=== PATIENT | female | born 1955 | race Caucasian/White ===

== ENCOUNTER 2016-08-14 22:25 | Emergency (ER) | payer OTHER ==
[2016-08-14 22:32] VITALS: BP 173/85; PULSE 94; RESP 18; TEMP 97.7
--- NOTE | 2016-08-14 23:08 | XR ---
EXAM: XR Left Foot Complete, 3 Views. CLINICAL HISTORY: Pain TECHNIQUE: Frontal, lateral and oblique views of the left foot. COMPARISON: XR left ankle dated 06/04/[address] left ankle dated 06/04/2014. FINDINGS: Bones/joints: Two orthopedic screws transfix the distal tibia in region of previous fracture. No evidence of acute fracture or hardware failure. Small corticated osseous fragment at the tip of the medial malleolus, probably sequela of prior injury. No dislocation. Mild degenerative changes are present. Soft tissues: Mild soft tissue swelling of the ankle. No radiopaque foreign body. IMPRESSION: 1. No acute fracture dislocation of the left foot. 2. Two orthopedic screws at the distal tibia without evidence of acute abnormality. 3. Corticated osseous fragment at the medial malleolus, probably sequela of prior injury.
--- NOTE | 2016-08-14 23:36 | ED ---
Lower Extremity Injury HPI - General Chief Complaint: Extremity Injury, Lower Stated Complaint: foot injury Time Seen by Provider: 08/14/16 22:35 Source: patient, RN notes reviewed Mode of arrival: ambulatory Limitations: no limitations - History of Present Illness Initial Comments: 60-year-old female presents emergency Department with chief complaint of left foot and ankle pain. Patient states she twisted her ankle. Patient states she' s had prior surgery secondary to fracture. Patient states bruising noted along her foot. Patient denies any head injury no other injuries at this time. - Related Data Home Medications Medication Instructions Recorded Confirmed Aspirin 325 mg PO DAILY 06/04/14 08/14/16 Cetirizine HCl [Zyrtec] 10 mg PO HS 06/04/14 08/14/16 Hydroxychloroquine Sulfate 200 mg PO BID 06/04/14 08/14/16 [Plaquenil] L.acid/L.casei/B.bif/B.tesfaye/Fos 1 cap PO DAILY 06/04/14 08/14/16 [Probiotic Blend Capsule] Levothyroxine Sodium [Synthroid] 125 mcg PO DAILY 06/04/14 08/14/16 Losartan-Hctz 50-12.5 mg [Hyzaar 1 tab PO HS 06/04/14 08/14/16 50-12.5] Multivitamins, Thera [Multivitamin] 1 tab PO DAILY 06/04/14 08/14/16 Sodium Chloride 5% Ophth Soln 2 drops BOTH EYES Q6H 06/04/14 08/14/16 [Farnaz 128] Previous Rx's Medication Instructions Recorded Hydrocodone/Acetaminophen [[place] 1 tab PO Q6HR PRN #15 tab 08/14/16 5-325] Allergies Allergy/AdvReac Type Severity Reaction Status Date / Time Penicillins Allergy Swelling Verified 08/14/16 22:35 lactose AdvReac Nausea & Verified 08/14/16 22:35 Vomiting & Diarrhea Review of Systems ROS Statement: Those systems with pertinent positive or pertinent negative responses have been documented in the HPI. ROS Other: All systems not noted in ROS Statement are negative. Past Medical History Past Medical History: Fibromyalgia, Hyperlipidemia, Hypertension, Osteoarthritis (OA), Thyroid Disorder Additional Past Medical History / Comment(s): Sjogrens syndrome History of Any Multi-Drug Resistant Organisms: None Reported Past Surgical History: Tonsillectomy Additional Past Surgical History / Comment(s): Right ankle fracture Past Psychological History: No Psychological Hx Reported Smoking Status: Never smoker Past Alcohol Use History: Heavy Past Drug Use History: None Reported - Past Family History Father Family Medical History: Coronary Artery Disease (CAD) Mother Family Medical History: CVA/TIA General Exam Limitations: no limitations General appearance: alert, in no apparent distress Head exam: Present: atraumatic, normocephalic, normal inspection Respiratory exam: Present: normal lung sounds bilaterally. Absent: respiratory distress, wheezes, rales, rhonchi, stridor Cardiovascular Exam: Present: regular rate, normal rhythm, normal heart sounds. Absent: systolic murmur, diastolic murmur, rubs, gallop, clicks Extremities exam: Present: other (Left foot there is bruising noted along the dorsal aspect, mild tenderness there is no laxity there is old surgical scars noted along the tib-fib region with no tenderness) Skin exam: Present: warm, dry, intact, normal color. Absent: rash Course Vital Signs 08/14/16 22:30 Temperature 97.7 F Pulse Rate 94 Respiratory 18 Rate Blood Pressure 173/85 O2 Sat by Pulse 99 Oximetry Medical Decision Making - Medical Decision Making 60-year-old female presented for left foot and ankle pain. Patient x-ray shows no acute fracture. Patient has a left foot sprain. Disposition Clinical Impression: Sprain of left foot Disposition: HOME SELF-CARE Condition: Stable Instructions: Foot Sprain (ED) Additional Instructions: Please return to the Emergency Department if symptoms worsen or any other concerns. Prescriptions: Hydrocodone/Acetaminophen [[place] 5-325] 1 tab PO Q6HR PRN #15 tab PRN Reason: Pain Time of Disposition: 23:36
--- NOTE | 2016-08-14 23:41 | XR ---
EXAM: XR Left Ankle Complete, 3 Views. CLINICAL HISTORY: Pain. TECHNIQUE: Frontal, lateral and oblique views of the left ankle. COMPARISON: XR and CT dated 06/04/2014. FINDINGS: Bones/joints: Two orthopedic screws are present at the left distal tibia. There is mild heterogeneity of the distal tibia with mixed sclerosis and lucency along the lateral aspect of the distal tibia. Corticated osseous fragment at the tip of the medial malleolus, likely sequela of prior injury. No dislocation. Soft tissues: Mild soft tissue swelling of the ankle. No evidence of radiopaque foreign body. IMPRESSION: 1. Orthopedic screws at the left distal tibia without radiographic evidence of acute fracture or dislocation. 2. Mild heterogeneity of the distal tibia with mixed sclerosis and lucency along the lateral aspect of the distal tibia. Findings may be related to sequela of prior injury although reinjury, infection, avascular necrosis or other process cannot be excluded. If there is clinical concern for infection or other abnormality, consider CT or MRI to further assess. 3. Mild soft tissue swelling of the left ankle.
== END 2016-08-14 23:48 | disposition home or self-care (01) ==
LOC: EC 22:25
DX: S93.602A Unspecified sprain of left foot, initial encounter (principal); X50.1XXA Overexertion from prolonged static or awkward postures, initial encounter; E07.9 Disorder of thyroid, unspecified; I10 Essential (primary) hypertension; E78.5 Hyperlipidemia, unspecified; Z79.82 Long term (current) use of aspirin; Z79.899 Other long term (current) drug therapy
CPT/HCPCS: 99283

== ENCOUNTER → 2018-04-19 | Outpatient (CLI) | payer OTHER ==
--- NOTE | 2018-04-19 13:28 | XR ---
EXAMINATION TYPE: XR ankle complete RT DATE OF EXAM: 04/19/2018 COMPARISON: NONE HISTORY: Pain TECHNIQUE: Frontal, lateral and oblique images of the right ankle are obtained. COMPARISON: None. FINDINGS: There is no acute fracture/dislocation evident. The joint spaces appear within normal gutierrez its. Chronic fragmentation medial malleolus. The overlying soft tissue appears unremarkable. IMPRESSION: There is no acute fracture or dislocation seen.
== END ==
LOC: RADXRMAIN 12:54
PROVIDERS: ATTEND Family Medicine
DX: M25.571 Pain in right ankle and joints of right foot (principal)

== ENCOUNTER 2019-03-09 16:29 | Inpatient (IN) | payer OTHER ==
[2019-03-09] MEDS ORDERED: DIPH,PERTUS(ACELL)TETVAC-LF 0.5 ML VIAL IM ONE (17:58)
--- NOTE | 2019-03-09 18:08 | ED ---
Wound/Laceration HPI <Amado John - Last Filed: 03/09/19 20:29> - General Source: patient, EMS Mode of arrival: EMS Limitations: no limitations <Lindsey Stroud - Last Filed: 03/09/19 21:57> - General Chief Complaint: Wound/Laceration Stated Complaint: Laceration Time Seen by Provider: 03/09/19 17:16 - History of Present Illness Initial Comments: Patient is a 63-year-old female presenting to the emergency department with a large laceration to the back of her right knee that happened prior to arrival. Patient states she was working on her roof and went to come off the roof onto her ladder and the ladder shifted and she ended up with her right leg trapped inside the ladder and she was hanging upside down for approximately 10-15 minutes until EMS showed and helped her down. Patient did not fall off of her ladder. Patient denies pain or injuries anywhere else. She denies hitting her head. Patient received 10 mL of morphine in the EMS. Patient denies chest pain, shortness of breath, nausea, vomiting, abdominal pain. Patient denies hip pain. Patient denies being on blood thinner. Past medical history of fibromyalgia, hypertension, thyroid disorder, Sjogrens syndrome. Upon arrival to ER, vital signs are stable. (Lindsey Stroud) - Related Data Home Medications Medication Instructions Recorded Confirmed Aspirin 325 mg PO DAILY 06/04/14 03/09/19 Hydroxychloroquine Sulfate 200 mg PO BID 06/04/14 03/09/19 [Plaquenil] Calcium Carbonate/Vitamin D3 1 tab PO AC-LUNCH 03/09/19 03/09/19 [Calcium 600-Vit D3 200 Tablet] Hydrochlorothiazide 12.5 mg PO HS 03/09/19 03/09/19 Levothyroxine Sodium [Synthroid] 137 mcg PO DAILY 03/09/19 03/09/19 Losartan [Cozaar] 50 mg PO HS 03/09/19 03/09/19 Vortioxetine Hydrobromide 5 mg PO DAILY 03/09/19 03/09/19 [Trintellix] Allergies Allergy/AdvReac Type Severity Reaction Status Date / Time Penicillins Allergy Swelling Verified 03/09/19 19:10 lactose AdvReac Nausea & Verified 03/09/19 19:10 Vomiting & Diarrhea Review of Systems ROS Other: All systems not noted in ROS Statement are negative. <Amado John - Last Filed: 03/09/19 20:29> ROS Other: All systems not noted in ROS Statement are negative. <Lindsey Stroud - Last Filed: 03/09/19 21:57> ROS Statement: Those systems with pertinent positive or pertinent negative responses have been documented in the HPI. Past Medical History Past Medical History: Fibromyalgia, Hyperlipidemia, Hypertension, Osteoarthritis (OA), Thyroid Disorder Additional Past Medical History / Comment(s): Sjogrens syndrome History of Any Multi-Drug Resistant Organisms: None Reported Past Surgical History: Tonsillectomy Additional Past Surgical History / Comment(s): Right ankle fracture Past Psychological History: Depression Smoking Status: Never smoker Past Alcohol Use History: Heavy Past Drug Use History: None Reported - Past Family History Father Family Medical History: Coronary Artery Disease (CAD) Mother Family Medical History: CVA/TIA <Lindsey Stroud - Last Filed: 03/09/19 21:57> General Exam Limitations: no limitations <Lindsey Stroud - Last Filed: 03/09/19 21:57> - General Exam Comments Initial Comments: GENERAL: Well-appearing, well-nourished and in no acute distress. HEAD: Atraumatic, normocephalic. EYES: Pupils equal round and reactive to light, extraocular movements intact, sclera anicteric, conjunctiva are normal. ENT: TMs normal, nares patent, oropharynx clear without exudates. Moist mucous membranes. NECK: Normal range of motion, supple without lymphadenopathy or JVD. LUNGS: Breath sounds clear to auscultation bilaterally and equal. No wheezes rales or rhonchi. HEART: Regular rate and rhythm without murmurs, rubs or gallops. ABDOMEN: Soft, nontender, normoactive bowel sounds. No guarding, no rebound. No masses appreciated. : Deferred EXTREMITIES: Pain with active knee flexion. Decreased active range of motion. Sensation is decreased on the medial aspect of the lower right leg when compared to the lateral aspect. Dorsal pedis is normal bilateral, confirmed with Doppler. Bleeding is minimal at this time. NEUROLOGICAL: Cranial nerves II through XII grossly intact. Normal speech, normal gait. PSYCH: Normal mood, normal affect. SKIN: Warm, Dry, normal turgor, no rashes. Patient has a large open wound to the medial, posterior aspect of the right knee. Wound is approximately 7 cm x 2 cm with a depth of approximately 2 cm. muscles and tendons exposed.. (Lindsey Stroud) Course <Amado John - Last Filed: 03/09/19 20:29> <Lindsey Stroud - Last Filed: 03/09/19 21:57> Vital Signs 03/09/19 03/09/19 16:31 18:27 Temperature 97 F L Pulse Rate 91 87 Respiratory 18 18 Rate Blood Pressure 131/80 138/74 O2 Sat by Pulse 99 99 Oximetry - Reevaluation(s) Reevaluation #1: 03/09/19 18:00 Asked by PA to evaluate patient. Patient does have a 4 x 7 cm laceration right posterior popliteal region, medially. There is some decreased sensation of the distal to this however sensation of the foot is intact. Dorsalis pedis pulse +2 bilateral. Good strength with flexion and extension of the foot. There may be slight decreased strength with flexion at the knee on the right. Cannot rule out disruption of the medial hamstring tendon. Unable to fully approximate the wound during examination. There is muscle exposed as well as some nerve exposure. There is minimal oozing. Case was discussed with Dr. Sol who recommends calling orthopedics. Comfort is 4/10, patient does not want pain medicine at this time. 03/09/19 18:16 Orthopedics has been paged, return call still pending 03/09/19 18:35 Case was discussed with Dr. Goldberg with orthopedics who does request discussing case with vascular. Vascular has been paged. 03/09/19 18:46 Case was discussed with Dr. Diaz to who feels he may not be a bad idea to order CT angios to evaluate popliteal artery. He states if there is any abnormality to call him back otherwise this case could be managed by orthopedics or general surgery. Patient was reevaluated and updated. Patient is still not want pain medication at this time. 03/09/19 20:29 Case again was discussed with Dr. Goldberg who does request approximating the wound as much as possible in the immobilizer and will admit. (Amado John) 03/09/19 17:50 Patient's wound was irrigated with 1 L of sterile saline. (Lindsey Stroud) Reevaluation #2: 03/09/19 19:26 Patient has returned from CT. Bleeding is minimal at this time from the wound. Patient reports her pain has started to increase slightly and is requesting more pain medication. Patient will be given [address] A[address] results of CT. 03/09/19 19:27 (Lindsey Stroud) Reevaluation #3: 03/09/19 21:30 CT of the right knee is normal, no arterial damage. Patient will be admitted to orthopedics. Patient's wound was loosely approximated with 3 sutures, covered with wet gauze,Tony bandage and knee immobilizer applied. Patient's pain is minimal at this time. (Lindsey Stroud) Procedures - Laceration Laceration #1 Consent Obtained: verbal consent Indication: laceration Site: other (Posterior aspect of right knee in the popliteal space) Size (cm): 7 Description: avulsion, irregular Depth: involves muscle layer, involves tendon Anesthetic Used: lidocaine 1% Anesthesia Technique: local infiltration Amount (mls): 10 Pre-repair: irrigated extensively Type of Sutures: nylon Size of Sutures: 4-0 Number of Sutures: 3 Technique: simple, interrupted Patient Tolerated Procedure: well <Lindsey Stroud - Last Filed: 03/09/19 21:57> - Laceration Laceration #1 Additional Comments: 3 sutures were used to loosely approximate the wound. The wound was then gerber ged with wet gauze and Tony wrapped. (Lindsey Stroud) Medical Decision Making - Lab Data Result diagrams: 03/09/19 19:09 03/09/19 19:09 <Amado John - Last Filed: 03/09/19 20:29> - Lab Data Result diagrams: 03/09/19 19:09 03/09/19 19:09 <Lindsey Stroud - Last Filed: 03/09/19 21:57> - Medical Decision Making Patient is a 63-year-old female presenting with a large open wound on the posterior aspect of her right knee. Patient got her knee stuck into a ladder. Bleeding is minimal at this time. Patient's wound was irrigated extensively. Patient was started on antibiotics and tetanus was updated. Case was discussed with Dr. John. CTA of right lower extremity shows no arterial damage. Knee x- ray shows no acute fractures. Lab work is normal today. Patient will be admi tted under orthopedics. Wound was loosely approximated with 3 sutures and covered with wet gauze and Tony wrap. Knee immobilizer was applied. (Lindsey Stroud) - Lab Data Lab Results 03/09/19 03/09/19 03/09/19 Range/Units 19:09 19:09 19:09 WBC 6.4 (3.8-10.6) k/uL RBC 3.50 L (3.80-5.40) m/uL Hgb 10.8 L (11.4-16.0) gm/dL Hct 31.7 L (34.0-46.0) % MCV 90.6 (80.0-100.0) fL MCH 30.9 (25.0-35.0) pg MCHC 34.1 (31.0-37.0) g/dL RDW 12.9 (11.5-15.5) % Plt Count 209 (150-450) k/uL Neutrophils % 84 % Lymphocytes % 8 % Monocytes % 5 % Eosinophils % 1 % Basophils % 0 % Neutrophils # 5.4 (1.3-7.7) k/uL Lymphocytes # 0.5 L (1.0-4.8) k/uL Monocytes # 0.3 (0-1.0) k/uL Eosinophils # 0.0 (0-0.7) k/uL Basophils # 0.0 (0-0.2) k/uL PT 11.6 (9.0-12.0) sec INR 1.1 (<1.2) APTT 25.4 (22.0-30.0) sec Sodium 130 L (137-145) mmol/L Potassium 3.9 (3.5-5.1) mmol/L Chloride 99 (98-107) mmol/L Carbon Dioxide 26 (22-30) mmol/L Anion Gap 5 mmol/L BUN 23 H (7-17) mg/dL Creatinine 0.93 (0.52-1.04) mg/dL Est GFR (CKD-EPI)AfAm 76 (>60 ml/min/1.73 sqM) Est GFR (CKD-EPI)NonAf 66 (>60 ml/min/1.73 sqM) Glucose 98 (74-99) mg/dL Calcium 8.5 (8.4-10.2) mg/dL Disposition <Amado John - Last Filed: 03/09/19 20:29> Is patient prescribed a controlled substance at d/c from ED?: No Decision Date: 03/09/19 Decision Time: 21:07 <Lindsey Stroud - Last Filed: 03/09/19 21:57> Clinical Impression: Laceration of right knee with complication Disposition: ADMITTED IP TO THIS HOSP Condition: Stable Referrals: Jack Saini DO [Primary Care Provider] - 1-2 days
--- NOTE | 2019-03-09 18:10 | XR ---
EXAMINATION TYPE: XR knee limited RT DATE OF EXAM: 03/09/2019 CLINICAL HISTORY: Large wound right leg TECHNIQUE: Frontal and lateral views of the right knee are obtained. COMPARISON: None. FINDINGS: There is no acute fracture/dislocation evident in right knee. Fairly severe patellofemoral compartment narrowing and spurring. Fydr-[id number] medial and lateral tibial femoral compartment n arrowing and spurring. Lucency consistent with large laceration medially and posteriorly near level o f knee joint. Adjacent subcutaneous edema extends superiorly and inferiorly. No obvious cortical dest ruction or periosteal reaction. IMPRESSION: As above.
--- NOTE | 2019-03-09 19:25 | CT ---
EXAMINATION TYPE: CT angio lower extremity RT DATE OF EXAM: 03/09/2019 7:18 PM COMPARISON: None. HISTORY: Large laceration Right posterior knee CT DLP: 701.1 mGycm Automated exposure control for dose reduction was used. TECHNIQUE: Performed with IV Contrast, patient injected with 125 mL of Isovue 370. 3D reconstructed images are created on an independent workstation and reviewed.. FINDINGS: There is patency of the distal common iliac arteries bilaterally branching into internal an d external iliac arteries bilaterally without significant plaque or stenosis. There is no significant plaque or stenosis involving common femoral arteries bilaterally ranging into superficial and deep f emoral arteries bilaterally. There is patency of the left superficial femoral artery into the poplite al artery with satisfactory bifurcation trifurcation. Imaging terminates at the proximal leg level. There is patency of the right superficial femoral artery and popliteal artery with bifurcation and tr ifurcation. No significant plaque or stenosis. Laceration injury along posterior medial aspect is see n best axial image 198 with subcutaneous air extending posteriorly and centrally all superficial to t he posterior like muscles and popliteal artery near level of knee. Mild diffuse subcutaneous edema se en posteriorly. No well-formed fluid collection or drainable hematoma noted. Incidental calcified fibroid axial image 39 at level of uterine fundus. IMPRESSION: No arterial compromise in the right lower extremity.
[2019-03-09] MEDS ORDERED: MORPHINE SULFATE 4 MG/ML SYRINGE IVP STA (19:27)
[2019-03-09 19:40] LABS: Calcium 8.5 mg/dL (8.4-10.2); Potassium 3.9 mmol/L (3.5-5.1)
[2019-03-09 19:43] LABS: INR 1.1 (<1.2); Partial Thromboplastin Time 25.4 sec (22.0-30.0); Prothrombin Time 11.6 sec (9.0-12.0)
[2019-03-09 19:49] LABS: Basophils % (A) 0 %; Eosinophils % (A) 1 %; HCT 31.7 % (34.0-46.0); HGB 10.8 gm/dL (11.4-16.0); Lymphocytes # (A) 0.5 k/uL (1.0-4.8); Lymphocytes % (A) 8 %; MCH 30.9 pg (25.0-35.0); MCHC 34.1 g/dL (31.0-37.0); MCV 90.6 fL (80.0-100.0); Mean Platelet Volume 5.8; Monocytes # (A) 0.3 k/uL (0-1.0); Monocytes % (A) 5 %; Neutrophils # (A) 5.4 k/uL (1.3-7.7); Neutrophils % (A) 84 %; Platelet Count 209 k/uL (150-450); RDW 12.9 % (11.5-15.5); WBC 6.4 k/uL (3.8-10.6)
[2019-03-09] MEDS ORDERED: ONDANSETRON 4 MG/2 ML VIAL IVP PRN (20:58)
[2019-03-09] MEDS ORDERED: NALOXONE 0.4 MG/ML 1 ML VIAL IV PRN (20:58)
[2019-03-09] MEDS ORDERED: ACETAMINOPHEN TAB 325 MG TAB PO PRN (20:58)
[2019-03-09] MEDS ORDERED: traMADol 50 MG TAB PO PRN (20:58)
[2019-03-09] MEDS ORDERED: LIDOCAINE 1% INJ 10MG/ML (20 ML MDV) SQ ONE (21:02)
[2019-03-09] MEDS: SODIUM CHLORIDE 0.9% 1,000 ML IV SCH (21:06)
[2019-03-09] MEDS: MORPHINE SULFATE 4 MG/ML SYRINGE IV PRN (23:58)
[2019-03-09] MEDS: LOSARTAN 50 MG TAB PO SCH (23:59)
[2019-03-09] MEDS: HYDROXYCHLOROQUINE SULFATE 200 MG TAB PO SCH (23:59)
[2019-03-10] MEDS: LEVOTHYROXINE 137 MCG TAB PO SCH (04:45)
[2019-03-10] MEDS: MORPHINE SULFATE 4 MG/ML SYRINGE IV PRN ×3 (04:45→11:09)
[2019-03-10] MEDS: HYDROXYCHLOROQUINE SULFATE 200 MG TAB PO SCH ×2 (08:07→20:19)
--- NOTE | 2019-03-10 10:33 | P.HPOR ---
History of Present Illness H&P Date: 03/10/19 Chief Complaint: Laceration right knee this is a 63-year-old female who slipped while on a ladder yesterday. When she fell her right knee was caught up in the ladder and she ended up hanging upside down by her knee for approximately 20 minutes. She was able to get help from a neighbor who called EMS. She is brought to the emergency department and on evaluation she has a large laceration about the posterior aspect of her knee. We are contacted Dr. Manzo last evening who advised them that they may close the incision if CTA was negative. CT was performed which showed no arterial bleed. The wound was loosely approximated in the emergency department and she is admitted to our service. The patient has no new complaints or concerns today. She denies head injury in the fall. Past Medical History Past Medical History: Fibromyalgia, Hyperlipidemia, Hypertension, Osteoarthritis (OA), Thyroid Disorder Additional Past Medical History / Comment(s): Sjogrens syndrome, heart murmur History of Any Multi-Drug Resistant Organisms: None Reported Past Surgical History: Tonsillectomy Additional Past Surgical History / Comment(s): left ankle fracture Past Psychological History: Depression Smoking Status: Never smoker Past Alcohol Use History: Heavy Additional Past Alcohol Use History / Comment(s): patient states she drinks a 6 pack of beer a few times a week. Past Drug Use History: None Reported - Past Family History Father Family Medical History: Coronary Artery Disease (CAD) Mother Family Medical History: CVA/TIA Medications and Allergies Home Medications Medication Instructions Recorded Confirmed Type Aspirin 325 mg PO DAILY 06/04/14 03/09/19 History Hydroxychloroquine Sulfate 200 mg PO BID 06/04/14 03/09/19 History [Plaquenil] Calcium Carbonate/Vitamin D3 1 tab PO AC-LUNCH 03/09/19 03/09/19 History [Calcium 600-Vit D3 200 Tablet] Hydrochlorothiazide 12.5 mg PO HS 03/09/19 03/09/19 History Levothyroxine Sodium [Synthroid] 137 mcg PO DAILY 03/09/19 03/09/19 History Losartan [Cozaar] 50 mg PO HS 03/09/19 03/09/19 History Vortioxetine Hydrobromide 5 mg PO DAILY 03/09/19 03/09/19 History [Trintellix] Allergies Allergy/AdvReac Type Severity Reaction Status Date / Time Penicillins Allergy Swelling Verified 03/09/19 19:10 lactose AdvReac Nausea & Verified 03/09/19 19:10 Vomiting & Diarrhea Physical Examination This is a pleasant 63-year-old female in no acute distress. She is alert and oriented 3. Exam of the right lower extremity reveals a large L-shaped laceration about the posterior medial aspect of the knee. The edges are very loosely approximated but the wound is still fairly open. There is minimal active bloody drainage. She has full foot and ankle motion without difficulty or pain. Neurovascular status to the lower extremities intact. Results X-rays of the right knee reveal no bony abnormality. No acute fracture identified. - Labs Labs: Abnormal Lab Results - Last 24 Hours (Table) 03/09/19 03/09/19 Range/Units 19: 19: RBC 3.50 L (3.80-5.40) m/uL Hgb 10.8 L (11.4-16.0) gm/dL Hct 31.7 L (34.0-46.0) % Lymphocytes # 0.5 L (1.0-4.8) k/uL Sodium 130 L (137-145) mmol/L BUN 23 H (7-17) mg/dL H & H 03/09/19 Range/Units 19:09 Hgb 10.8 L (11.4-16.0) gm/dL Hct 31.7 L (34.0-46.0) % Coagulation 03/09/19 Range/Units 19:09 INR 1.1 (<1.2) Result Diagrams: 03/09/19 19:09 03/09/19 19:09 Assessment and Plan (1) Laceration of right knee with complication Current Visit: Yes Status: Acute Code(s): S81.011A - LACERATION WITHOUT FOREIGN BODY, RIGHT KNEE, INIT ENCNTR SNOMED Code(s): 112344215 Plan: The clinical and x-ray findings are discussed the patient. It is recommended she go to the OR today for irrigation and debridement of the wound and secondary closure. The procedures been discussed in detail including the possible risks and outcomes. After discussion and consideration patient elects to proceed with the surgery.
--- NOTE | 2019-03-10 13:11 | P.CONS ---
History of Present Illness - Reason for Consult Consult date: 03/10/19 Medical management Requesting physician: Kraig Goldberg - Chief Complaint Laceration of the right knee, hypertension, hyperlipidemia and hypothyroidi - History of Present Illness this is a 63-year-old female who slipped while on a ladder yesterday. When she fell her right knee was caught up in the ladder and she ended up hanging upside down by her knee for approximately 20 minutes. She was able to get help from a neighbor who called EMS. She is brought to the emergency department and on evaluation she has a large laceration about the posterior aspect of her knee. We are contacted Dr. Goldberg surgical closure last evening who advised them that they may close the incision if CTA was negative. CT was performed which showed no arterial bleed. The wound was loosely approximated in the emergency department and she is admitted to our service. No other injury except mild bruise on the left knee as well. The depth of the laceration on the lateral side of the right knee is very deep with multiple layer. Orthopedic probably will do a repair on multi layer. Patient is on Plaquenil for Sjogren syndrome which will be held for the next few days and patient should be cover probably with appropriate antibiotics in the next 2 weeks to watch the incision afterward for any sign of infection. Patient will be going to the OR for surgical closure. Review of Systems CONSTITUTIONAL: Well-developed no acute respiratory distress. EYES: No icterus sclerae, no conjunctivitis. EARS, NOSE, MOUTH, THROAT, and FACE: No sore throat, lymphadenopathy, carotid bruits or deformity. RESPIRATORY: No SOB cough or wheezes. CARDIOVASCULAR: No CP, Palpitation, PND, Orthopnea, or angina. GASTROINTESTINAL: No Abd pain, Nausea or vomiting, no Diarrhea or constipation, No GI Bleed, no distention or masses. GENITOURINARY: Negative for Hematuria or UTI, no kidney stones. INTEGUMENT/BREAST: Negative for any muscular injury with mild osteoarthritis.. HEMATOLOGIC/LYMPHATIC: Negative for bleed or purpura. MUSCULOSKELTAL: Negative for Myalgia or arthralgia. NEURLOGICAL: No LOC, Sz or syncope, blurred vision dizziness or abnormality.. BEHAVIORAL/PSYCH: Negative. ENDOCRINE: Negative. Past Medical History Past Medical History: Fibromyalgia, Hyperlipidemia, Hypertension, Osteoarthritis (OA), Thyroid Disorder Additional Past Medical History / Comment(s): Sjogrens syndrome, heart murmur History of Any Multi-Drug Resistant Organisms: None Reported Past Surgical History: Tonsillectomy Additional Past Surgical History / Comment(s): left ankle fracture Past Psychological History: Depression Smoking Status: Never smoker Past Alcohol Use History: Heavy Additional Past Alcohol Use History / Comment(s): patient states she drinks a 6 pack of beer a few times a week. Past Drug Use History: None Reported - Past Family History Father Family Medical History: Coronary Artery Disease (CAD) Mother Family Medical History: CVA/TIA Medications and Allergies Home Medications Medication Instructions Recorded Confirmed Type Aspirin 325 mg PO DAILY 06/04/14 03/09/19 History Hydroxychloroquine Sulfate 200 mg PO BID 06/04/14 03/09/19 History [Plaquenil] Calcium Carbonate/Vitamin D3 1 tab PO AC-LUNCH 03/09/19 03/09/19 History [Calcium 600-Vit D3 200 Tablet] Hydrochlorothiazide 12.5 mg PO HS 03/09/19 03/09/19 History Levothyroxine Sodium [Synthroid] 137 mcg PO DAILY 03/09/19 03/09/19 History Losartan [Cozaar] 50 mg PO HS 03/09/19 03/09/19 History Vortioxetine Hydrobromide 5 mg PO DAILY 03/09/19 03/09/19 History [Trintellix] Allergies Allergy/AdvReac Type Severity Reaction Status Date / Time Penicillins Allergy Swelling Verified 03/09/19 19:10 lactose AdvReac Nausea & Verified 03/09/19 19:10 Vomiting & Diarrhea Physical Exam Vitals: Vital Signs Temp Pulse Pulse Resp BP BP Pulse Ox 03/10/19 07:00 97.8 F 74 16 117/76 98 03/10/19 02:00 97.9 F 77 18 117/73 99 03/09/19 23:00 97.9 F 99 16 136/81 99 03/09/19 21:58 98.1 F 86 16 129/80 99 03/09/19 18:27 87 18 138/74 99 03/09/19 16:31 97 F L 91 18 131/80 99 Intake and Output 03/09/19 03/10/19 03/10/19 22:59 06:59 14:59 Intake Total 480 Balance 480 Intake: Intake, IV Titration 480 Amount Sodium Chloride 0.9% 1, 480 000 ml @ 60 mls/hr IV . [id number] [facility] Rx#:[id number] Other: Voiding Method Toilet Weight 86.183 kg General Appearance: Alert, cooperative, no distress, appears stated age. Neck HEENT: Supple, no lymphadenopathy, no thyroid enlargement, no carotid bruits. Lungs: Clear to auscultation without crackles or wheezes no rhonchi, no deformity. Chest Wall: Chest wall normal expansion with deep inspiration no tenderness and no deformity was found on exam, no costochondral pain or discomfort. Heart: Regular rate and rhythm, S1, S2 normal, no murmur, rub or gallop. Back: Symmetric, no curvature, ROM normal, no CVA tenderness. Abdomen: Soft, non-tender, bowel sounds active all four quadrants, no masses, no organomegaly. Extremities: Mild bruise on the left knee, the right side had a brace but seen a picture of the laceration on the lateral side of the knee with deep no exposure bone the area was irrigated and explain will be going for multilayer repair today. Pulses: 2+ and symmetric. Skin: Skin color, texture, tugor normal, no rashes or lesions. Neurologic: Alert oriented x3 cranial nerves II through XII intact, no motor deficit, no abnormal balance or gait. Results CBC & Chem 7: 03/09/19 19:09 03/09/19 19:09 Labs: Abnormal Lab Results - Last 24 Hours (Table) 03/09/19 03/09/19 Range/Units 19: 19:09 RBC 3.50 L (3.80-5.40) m/uL Hgb 10.8 L (11.4-16.0) gm/dL Hct 31.7 L (34.0-46.0) % Lymphocytes # 0.5 L (1.0-4.8) k/uL Sodium 130 L (137-145) mmol/L BUN 23 H (7-17) mg/dL Assessment and Plan Plan: 1 large laceration of the right knee with complication: Patient had x-ray and further workup was going to the OR today for irrigation debridement and closure. There is no absolute contraindication for surgery no need for any further testing before this type of surgery continue to monitor patient vitals will resume home meds and try to control her pain after surgery. Patient will be off Plaquenil for 3 days and highly recommended to start patient on antibiotics for the next 2 weeks specially with the area been open overnight and to watch the incision as an outpatient to make sure she is negative have any secondary infection or cellulitis. 2 hypertension: Remain on losartan and hydrochlorothiazide. 3 hypothyroidism: Remain on levothyroxine 137 g daily continue medication. 4 chronic depression: Has been on Trintellix 5 mg a day resume medication. 5 Sjogren syndrome: Patient has been on Plaquenil for Sjogren and arthritis continue medication after the surgery would hold medication for now. 6 edema: Patient be continued on hydrochlorothiazide after surgery. 7 GI prophylaxis: Patient be on Pepcid 20 mg daily. 8 DVT prophylaxis: Patient be started on heparin 5000 units subcutaneous twice a day. CODE STATUS: Full code. Dr. Goldberg thank you very much for the consult if I can be any further help to please let me know
[2019-03-10] MEDS: SODIUM CHLORIDE 0.9% 1,000 ML IV SCH (13:42)
[2019-03-10] MEDS ORDERED: LACTATED RINGERS 1,000 ML IV ONE ×2 (15:31→18:32)
[2019-03-10] MEDS ORDERED: fentaNYL (PF) 50 MCG/ML 2 ML AMP ONE (16:57)
[2019-03-10] MEDS ORDERED: PROPOFOL 10 MG/ML 20 ML VIAL IV ONE (16:57)
[2019-03-10] MEDS ORDERED: LIDOCAINE 1% INJ 10MG/ML (20 ML MDV) ONE (16:57)
[2019-03-10] MEDS ORDERED: MIDAZOLAM 2 MG/2 ML VIAL ONE (16:57)
[2019-03-10] MEDS ORDERED: SUCCINYLCHOLINE CHLORIDE 100 MG/5 ML SYR IV ONE (16:57)
[2019-03-10] MEDS ORDERED: CLINDAMYCIN 1,800 MG in SODIUM CHLORIDE 0.9% IRRIGATIO 3,000 ML IRRIGATION ONE (17:38)
[2019-03-10] MEDS ORDERED: diphenhydrAMINE 25 MG CAP PO PRN (17:54)
[2019-03-10] MEDS ORDERED: hydrOXYzine PAMOATE 25 MG CAP PO PRN (17:54)
[2019-03-10] MEDS ORDERED: SENNOSIDES-DOCUSATE SODIUM 1 EACH TAB PO PRN (17:54)
[2019-03-10] MEDS ORDERED: HYDROmorphone 0.5 MG/0.5 ML SYRINGE IVP PRN ×2 (17:54)
[2019-03-10] MEDS ORDERED: HYDROmorphone 1 MG/ML 1 ML SYRINGE IVP ONE ×2 (18:05→18:15)
[2019-03-10] MEDS: LOSARTAN 50 MG TAB PO SCH (20:19)
[2019-03-10] MEDS: HYDROmorphone 1 MG/ML 1 ML SYRINGE IVP PRN (22:30)
[2019-03-11] MEDS: HYDROmorphone 1 MG/ML 1 ML SYRINGE IVP PRN (01:00)
[2019-03-11] MEDS: HYDROcodone/APAP 5-325MG 1 EACH TAB PO PRN ×2 (01:01→07:30)
[2019-03-11] MEDS ORDERED: HYDROCHLOROTHIAZIDE 12.5 MG CAP PO SCH (07:00)
[2019-03-11 07:24] VITALS: BP 119/54; PULSE 86; RESP 16; TEMP 98
[2019-03-11] MEDS: HYDROXYCHLOROQUINE SULFATE 200 MG TAB PO SCH (07:30)
[2019-03-11] MEDS: LEVOTHYROXINE 137 MCG TAB PO SCH (07:31)
[2019-03-11] MEDS: SODIUM CHLORIDE 0.9% 1,000 ML IV SCH (07:31)
--- NOTE | 2019-03-11 08:28 | P.DS ---
Providers Date of admission: 03/09/19 20:30 Expected date of discharge: 03/11/19 Attending physician: Kraig Goldberg Consults: 03/10/19 11:33 Consult Physician Routine Consulting Provider: Evan Spicer Reason/Comments: medical management Do you want consulting provider notified?: Yes Primary care physician: Jack Saini - Discharge Diagnosis(es) (1) Laceration of right knee with complication Current Visit: Yes Status: Acute Hospital Course: This is a 63-year-old female admitted through the emergency department on 03/09/2019 after slipping on her ladder and sustaining a large laceration to the back of her right knee. She was taken to surgery on 03/10/2019 for irrigation and delayed primary closure of the large posterior laceration. The procedure was performed without complication or sequelae. The patient is doing well on postoperative day 1. We're planning discharge to home today. Please see med rec for accurate list of home medications. Patient Condition at Discharge: Stable Plan - Discharge Summary Discharge Rx Participant: No New Discharge Prescriptions: New HYDROcodone/APAP 5-325MG [[place] 5-325] 1 - 2 each PO Q4-6H PRN #40 tab PRN Reason: Pain Cefadroxil [Duricef] 500 mg PO Q12HR #14 cap No Action Aspirin 325 mg PO DAILY Hydroxychloroquine Sulfate [Plaquenil] 200 mg PO BID Vortioxetine Hydrobromide [Trintellix] 5 mg PO DAILY Levothyroxine Sodium [Synthroid] 137 mcg PO DAILY Losartan [Cozaar] 50 mg PO HS Hydrochlorothiazide 12.5 mg PO HS Calcium Carbonate/Vitamin D3 [Calcium 600-Vit D3 200 Tablet] 1 tab PO AC- LUNCH Discharge Medication List Aspirin 325 mg PO DAILY 06/04/14 [History] Hydroxychloroquine Sulfate [Plaquenil] 200 mg PO BID 06/04/14 [History] Calcium Carbonate/Vitamin D3 [Calcium 600-Vit D3 200 Tablet] 1 tab PO AC-LUNCH 03/09/19 [History] Hydrochlorothiazide 12.5 mg PO HS 03/09/19 [History] Levothyroxine Sodium [Synthroid] 137 mcg PO DAILY 03/09/19 [History] Losartan [Cozaar] 50 mg PO HS 03/09/19 [History] Vortioxetine Hydrobromide [Trintellix] 5 mg PO DAILY 03/09/19 [History] Cefadroxil [Duricef] 500 mg PO Q12HR #14 cap 03/11/19 [Rx] HYDROcodone/APAP 5-325MG [[place] 5-325] 1 - 2 each PO Q4-6H PRN #40 tab 03/11/19 [Rx] Follow up Appointment(s)/Referral(s): Jack Saini DO [Primary Care Provider] - 1-2 days Kraig Goldberg MD [STAFF PHYSICIAN] - 10 Days Activity/Diet/Wound Care/Special Instructions: Daily dressing change. Maintain knee immobilizer. Discharge Disposition: HOME SELF-CARE
[2019-03-11] MEDS ORDERED: VORTIOXETINE HYDROBROMIDE 10 MG TABLET PO SCH (09:00)
[2019-03-11] MEDS ORDERED: FAMOTIDINE 20 MG TAB PO SCH (09:00)
[2019-03-11] MEDS ORDERED: CALCIUM CARB-VIT D 500MG-200UN 1 EACH TAB PO SCH (12:30)
--- NOTE | 2019-03-11 13:17 | P.PN ---
Subjective Progress Note Date: 03/11/19 Principal diagnosis: Laceration of the right knee, hypertension, hyperlipidemia and hypothyroidism. this is a 63-year-old female who slipped while on a ladder yesterday. When she fell her right knee was caught up in the ladder and she ended up hanging upside down by her knee for approximately 20 minutes. She was able to get help from a neighbor who called EMS. She is brought to the emergency department and on evaluation she has a large laceration about the posterior aspect of her knee. We are contacted Dr. Goldberg surgical closure last evening who advised them that they may close the incision if CTA was negative. CT was performed which showed no arterial bleed. The wound was loosely approximated in the emergency department and she is admitted to our service. No other injury except mild bruise on the left knee as well. The depth of the laceration on the lateral side of the right knee is very deep with multiple layer. Orthopedic probably will do a repair on multi layer. Patient is on Plaquenil for Sjogren syndrome which will be held for the next few days and patient should be cover probably with appropriate antibiotics in the next 2 weeks to watch the incision afterward for any sign of infection. 03/11: Patient ended up going to the OR had OR closure area successfully with no major complication patient will be sent home today with orthopedics. Objective - Vital Signs Vital signs: Vital Signs Temp 98 F 03/11/19 07:23 Pulse 86 03/11/19 07:23 Resp 16 03/11/19 07:23 BP 119/54 03/11/19 07:23 Pulse Ox 98 03/11/19 07:23 Intake & Output 03/10/19 03/11/19 03/11/19 18:59 06:59 18:59 Intake Total 1026.5 690 350 Output Total 2 Balance 1024.5 690 350 Intake: IV 1026.5 Intake, IV Titration 690 Amount Sodium Chloride 0.9% 1, 690 000 ml @ 60 mls/hr IV . [id number] [facility] Rx#:[id number] Oral 350 Output: Estimated Blood Loss 2 Other: # Voids 3 2 - Exam Review of Systems CONSTITUTIONAL: Well-developed no acute respiratory distress. EYES: No icterus sclerae, no conjunctivitis. EARS, NOSE, MOUTH, THROAT, and FACE: No sore throat, lymphadenopathy, carotid bruits or deformity. RESPIRATORY: No SOB cough or wheezes. CARDIOVASCULAR: No CP, Palpitation, PND, Orthopnea, or angina. GASTROINTESTINAL: No Abd pain, Nausea or vomiting, no Diarrhea or constipation, No GI Bleed, no distention or masses. GENITOURINARY: Negative for Hematuria or UTI, no kidney stones. INTEGUMENT/BREAST: Negative for any muscular injury with mild osteoarthritis.. HEMATOLOGIC/LYMPHATIC: Negative for bleed or purpura. MUSCULOSKELTAL: Negative for Myalgia or arthralgia. NEURLOGICAL: No LOC, Sz or syncope, blurred vision dizziness or abnormality.. BEHAVIORAL/PSYCH: Negative. ENDOCRINE: Negative. Physical Exam General Appearance: Alert, cooperative, no distress, appears stated age. Neck HEENT: Supple, no lymphadenopathy, no thyroid enlargement, no carotid bruits. Lungs: Clear to auscultation without crackles or wheezes no rhonchi, no deformity. Chest Wall: Chest wall normal expansion with deep inspiration no tenderness and no deformity was found on exam, no costochondral pain or discomfort. Heart: Regular rate and rhythm, S1, S2 normal, no murmur, rub or gallop. Back: Symmetric, no curvature, ROM normal, no CVA tenderness. Abdomen: Soft, non-tender, bowel sounds active all four quadrants, no masses, no organomegaly. Extremities: Mild bruise on the left knee, the right side had a brace but seen a picture of the laceration on the lateral side of the knee with deep no exposure bone the area was irrigated and explain will be going for multilayer repair today. Pulses: 2+ and symmetric. Skin: Skin color, texture, tugor normal, no rashes or lesions. Neurologic: Alert oriented x3 cranial nerves II through XII intact, no motor deficit, no abnormal balance or gait. - Labs CBC & Chem 7: 03/09/19 19:09 03/09/19 19:09 Assessment and Plan Plan: 1 large laceration of the right knee with complication: Patient ended up going to the OR yesterday and had OR closure for her large laceration was cover with antibiotics. 2 hypertension: Remain on losartan and hydrochlorothiazide. 3 hypothyroidism: Remain on levothyroxine 137 g daily continue medication. 4 chronic depression: Has been on Trintellix 5 mg a day resume medication. 5 Sjogren syndrome: Patient has been on Plaquenil for Sjogren and arthritis continue medication after the surgery would hold medication for now. 6 edema: Patient be continued on hydrochlorothiazide after surgery. 7 GI prophylaxis: Patient be on Pepcid 20 mg daily. Discharge planning: Patient is doing very well she'll be discharged home today pain is under control and was started on Duricef 500 mg twice a day for total of 1 week.
== END 2019-03-11 12:03 | disposition home or self-care (01) | DRG 605 ==
LOC: EC 16:29 → 4SSUR 20:30
PROVIDERS: ADMIT Orthopaedic Surgery; ATTEND Orthopaedic Surgery
PROC: 0HQKXZZ Repair Right Lower Leg Skin, External Approach (ICD-10-PCS; principal; 2019-03-09)
DX: S81.011A Laceration without foreign body, right knee, initial encounter (principal); E03.9 Hypothyroidism, unspecified; E78.5 Hyperlipidemia, unspecified; F32.9 Major depressive disorder, single episode, unspecified; I10 Essential (primary) hypertension; M35.00 Sjogren syndrome, unspecified; M79.7 Fibromyalgia; S80.02XA Contusion of left knee, initial encounter; W23.1XXA Caught, crushed, jammed, or pinched between stationary objects, initial encounter; Z79.82 Long term (current) use of aspirin; Z79.890 Hormone replacement therapy; Z79.899 Other long term (current) drug therapy; Z82.49 Family history of ischemic heart disease and other diseases of the circulatory system; Z88.0 Allergy status to penicillin
CPT/HCPCS: 12002; 36415; 80048; 85025; 85610; 85730; 90471; 90715; 96365; 96375; 99285

== ENCOUNTER → 2019-06-03 | Outpatient (CLI) | payer OTHER ==
--- NOTE | 2019-06-03 08:48 | MR ---
EXAMINATION TYPE: MR angio head wo con DATE OF EXAM: 06/03/2019 COMPARISON: None HISTORY: Headaches, family hx aneurysm CONTRAST: None TECHNIQUE: Multiplanar multiecho imaging on a 3.0 Namita magnet is performed through the [facility]. 3-D [id number] imaging is performed. Source images are reviewed on the computer in the axi al plane. Reconstructed images rotating on the computer are reviewed. FINDINGS: The internal carotid arteries bifurcate normally into A1 and M1 segments. The A2 segments are normal. Middle cerebral artery branches are normal. Anterior communicating artery is patent. The right posterior communicating artery is widely patent. This terminates in the right posterior ce rebral artery. The left posterior communicating artery is widely patent. Vertebrobasilar arteries within the [id number] are normal. Posterior cerebral vasculature is norm al variant. No suspicious aneurysm or aneurysmal dilatation is evident. No obstructions are identif ied. No significant flow-limiting stenosis is evident. IMPRESSIONS: 1. NORMAL MRA [place] OF [place].
== END | disposition home or self-care (01) ==
LOC: RADMRIMAIN 07:55
PROVIDERS: ATTEND Family Medicine
DX: R51 Headache (principal)
CPT/HCPCS: 70544

== ENCOUNTER → 2019-06-21 | Outpatient (CLI) | payer OTHER ==
[2019-06-21 11:08] LABS: Basophils % (A) 2 %; Eosinophils # (A) 0.1 k/uL (0-0.7); Eosinophils % (A) 4 %; HCT 42.8 % (34.0-46.0); HGB 13.7 gm/dL (11.4-16.0); Lymphocytes # (A) 0.6 k/uL (1.0-4.8); Lymphocytes % (A) 22 %; MCH 29.1 pg (25.0-35.0); MCHC 31.9 g/dL (31.0-37.0); MCV 91.3 fL (80.0-100.0); Monocytes # (A) 0.2 k/uL (0-1.0); Monocytes % (A) 8 %; Neutrophils # (A) 1.5 k/uL (1.3-7.7); Neutrophils % (A) 62 %; Platelet Count 273 k/uL (150-450); RBC 4.69 m/uL (3.80-5.40); RDW 14.6 % (11.5-15.5); WBC 2.5 k/uL (3.8-10.6)
[2019-06-21 17:06] LABS: ALT 17 U/L (8-44); AST 18 U/L (13-35); GGT 18 U/L (0-38)
== END | disposition home or self-care (01) ==
LOC: LABWHC1 10:43
PROVIDERS: ATTEND Family Medicine
DX: I10 Essential (primary) hypertension (principal); E78.5 Hyperlipidemia, unspecified; E03.9 Hypothyroidism, unspecified; M06.9 Rheumatoid arthritis, unspecified; D72.819 Decreased white blood cell count, unspecified
CPT/HCPCS: 36415; 82977; 84450; 84460; 85025; 85379

== ENCOUNTER → 2020-03-23 | Day surgery (SDC) | payer MEDICARE ==
[2020-03-20 14:19] VITALS: BMI 31.3
[~2020-03-23] MED LIST: DEXAMETHASONE SOD PHOSPHATE 10 MG/ML 1 ML VIAL IV ONE; DEXAMETHASONE SOD PHOSPHATE 4 MG/ML 1 ML VIAL ONE; KETOROLAC 15 MG/ML 1 ML VIAL IVP ONE; LACTATED RINGERS 1,000 ML IV ONE; LACTATED RINGERS 1,000 ML IV SCH; LIDOCAINE 1% (10MG/ML) FOR IV START INTRADERMA PRN; LIDOCAINE 1% INJ 10MG/ML (20 ML MDV) ONE; MIDAZOLAM 2 MG/2 ML VIAL IVP ONE; MIDAZOLAM 2 MG/2 ML VIAL ONE; ONDANSETRON 4 MG/2 ML VIAL ONE; PHENYLEPHRINE-0.9% NACL SYG 1 MG/10 ML SYRINGE ONE; PROPOFOL 10 MG/ML 20 ML VIAL IV ONE; Pre Op ABX Message 1 EACH MISC MISCELLANE ONE; ROPIVACAINE 5 MG/ML 30 ML VIAL ONE; SODIUM CHLORIDE 0.9% 100 ML BAG ONE; SODIUM CHLORIDE 0.9% 100 ML with ceFAZolin 2,000 GM IV ONE; SUCCINYLCHOLINE CHLORIDE 100 MG/5 ML SYR IV ONE; ceFAZolin 1,000 MG VIAL ONE; fentaNYL (PF) 50 MCG/ML 2 ML AMP ONE
[2020-03-23 11:04] VITALS: RESP 16
--- NOTE | 2020-03-23 14:47 | P.OP ---
Date of Procedure: 03/23/20 Procedure(s) Performed: PREOPERATIVE DIAGNOSES: 1. Left shoulder large rotator cuff tear. 2. Chronic impingement syndrome. 3. Acromioclavicular osteoarthritis. 4. Superior labral degenerative tear. 5. Long head biceps tendinopathy 6. Adhesive capsulitis POSTOPERATIVE DIAGNOSES: 1. Left shoulder rotator cuff tear (supraspinatus, infraspinatus 3.5 cm). 2. Chronic impingement syndrome. 3. Acromioclavicular osteoarthritis. 4. Labral degenerative tear. 5. Adhesive capsulitis, mild. PROCEDURES PERFORMED: 1. Left shoulder arthroscopy with mini open rotator cuff repair. 2. Arthroscopic subacromial decompression 3. Arthroscopic debridement degenerative labral tear 4. Arthroscopic partial synovectomy 5. Arthroscopic lysis of adhesions, capsular release and manipulation ANESTHESIA: General plus interscalene block. ESTIMATED BLOOD LOSS: Less than 25 mL TOURNIQUET: None TOWER DIRECTOR: Rosalba Hunter PA-C (Assistance with: patient positioning, camera operation, retraction, fixation, closure, dressing) COMPLICATIONS: None. DISPOSITION: To postanesthesia care unit INDICATIONS: Cynthia is a 64-year-old female with a history of falling and sustaining a significant rotator cuff tear involving the left shoulder. She had an anterior-inferior dislocation initially, and recent studies with MRI have shown a large rotator cuff tear along with findings consistent with previous dislocation. This has caused severe disability with inability to raise the arm as well as significant pain. MRI has confirmed findings and allowed for adequate preoperative planning. I have discussed options of treatment in detail and the patient wishes to proceed with an arthroscopic approach possibly combined with a mini open rotator cuff repair for treatment of this problem. However, considering the size of the rotator cuff tear, the recovery may possibly be prolonged. I discussed potential risks and complications and the patient wishes to proceed with surgery. The consent form has been signed. PROCEDURE: Appropriate consent was obtained from the patient. The patient was taken to the operating room and placed in the supine position. General anesthesia was initiated and after confirmation of adequate anesthesia, the patients left shoulder was examined. Initial range of motion showed flexion to 120, abduction to 120, external rotation to 50 and internal rotation to 50. Gentle manipulation was performed using Codmans paradox maneuver such that range of motion was improved to 170 flexion, 170 abduction, 75 external rotation and 75 internal rotation. The shoulder was stable. Next, the patient was rotated into the lateral decubitus position and stabilized to the table with a knutson bag and padded straps. Care was taken to make sure that all pressure points were adequately padded. Bear-hugger was used along with bilateral leg sequential compression devices. Prepping and draping was completed in the usual aseptic fashion using ChloraPrep. The patient received intravenous antibiotics prior to incision. The shoulder was suspended from traction with 10 lbs. of weight in a position of 45 degrees abduction. Landmarks were outlined with a skin marking pen. A spinal needle was inserted into the glenohumeral joint and fluid was administered to distend the joint. No significant pressure was noted after 100 mL was administered. A posterior portal was created using an 11 blade and the arthroscopic canula, over a dull trocar, was carefully inserted into the joint. Arthroscopy then commenced. An anterior portal was inserted in the rotator interval area using inside-out technique. Biceps tendon showed signs of tendinopathy, but no significant focal tearing was noted. No evidence of dislocation or subluxation of the tendon was seen. Subscapularis and teres minor were normal. Hyaline cartilage of the glenoid and humeral head showed degenerative changes typical for age. Evaluation of the remainder of the rotator cuff showed significant full-thickness tearing involving the entire supraspinatus and the infraspinatus. The tear measured approximately 3.5 cm in size. Bursal tissue could be clearly seen through the rotator cuff defect as well as acromial spurring which likely contributed to the tear. No loose bodies were noted in the joint. Superior labrum showed some degenerative tearing but was well-attached. Negative peel back sign. There was also evidence of minor degenerative labral tearing in the inferior area. Loose fibers of labrum in this area were debrided away back to stable labrum. Synovitis was noted superior to the superior labrum and within the rotator interval. This was debrided and removed where the capsule appeared inflamed, using an arthroscopic shaver. Rotator interval release was performed with shaver, with meticulous hemostasis with radial frequency. The capsule was released almost entirely by the manipulation, but was finished off using a radio frequency device in the anterior inferior region. Attention was then directed to the subacromial space. The camera and instruments were redirected into the subacromial space and bursoscopy was performed. The patients bursa was inflamed and thickened, indicating chronic bursitis. A lateral portal was created using outside-in technique. The supraspinatus tendon was examined particularly closely. There was an approximately 3.5 cm full thickness tear, involving the supraspinatus and subscapularis and infraspinatus. Almost the entire superior humeral head was able to be visualized through the cuff defect. Loose fibers of the tear were debrided back to stable tissue using a shaver and the footprint of the rotator cuff was abraded back to bleeding bone using a shaver and rasp. The undersurface of the acromion had frictional changes consistent with impingement syndrome. The underside of the acromion anteriorly was cleared of soft tissue using an arthroscopic radiofrequency ablator. Care was taken while using the ablator not to exceed 40 degrees Centigrade within the bursa. The frictional changes of the rotator cuff matched the location of the rotator cuff tear in the critical zone. A formal subacromial decompression was performed using a yaya. Approximately 4 mm of material was removed from the anterior- inferior corner of the acromion. This resection was beveled upwards laterally, and carried to the AC joint. The AC joint did not appear to be contributing significantly to this patient's impingement and therefore was left alone.. The rotator cuff tear was then repaired as follows. A mini open incision was created directly at the lateral portal and carried down through skin and into subcutaneous tissue and down to deltoid fascia. Deltoid fascia was split in line with its fibers for no more than 3.5 cm from the acromial border. Self- retaining retractor was applied without detaching any portion of the deltoid. Visualization was excellent. Any extraneous/degenerative tissue was removed manually with a dissecting scissor. Finishing touches were applied to the rotator cuff footprint. Tag stitches were placed in the edge of the tear and mobility of the tear was tested. Mobility was adequate, but cuff tissue quality was poor. Care was taken to try to reconstruct the biceps sling apparatus at the entry into the intertubercular groove. This was performed using the tissue between the supraspinatus and subscapularis. First, 2 5.5 mm bio cork screw double loaded anchors from [employer] were deployed at the lateral margin of the supraspinatus and infraspinatus footprints. Mattress sutures and a simple stitch across the horizontal mattress were deployed into the appropriate location on the tendons. There was excellent coverage of the rotator cuff over the foot using this technique. Subsequently, the mattress sutures were tied down securely. Finally, #2 FiberWire suture was used peripherally at the repair site to repair to residual rotator cuff tendon that was still attached. Rotation of the shoulder showed complete closure of the cuff defect. The repair was stable. Subsequently, O Vicryl suture was used in the deltoid split, followed by 2-0 Vicryl in the subcutaneous tissues. A running 3-0 Monocryl subcuticular stitch was then used for the mini open surgical incision. 4-0 Monocryl was used to close the portal holes. Steri-strips were applied as well as sterile dressing. The shoulder was then placed into a sling shot type sling and the patient was transferred to recovery room in stable condition. Sponge and needle counts were correct.
[2020-03-23 15:08] VITALS: TEMP 97.5
[2020-03-23 16:01] VITALS: BP 151/68; PULSE 90
--- NOTE | 2020-03-24 19:34 | P.ANPRN ---
Procedure Note - Anesthesia - Nerve Block Performed Left Interscalene Single Time Out Performed: Yes Date of Procedure: 03/23/20 Procedure Start Time: 11:47 Procedure Stop Time: 11:52 Location of Patient: PreOp Indication: Acute Post-Operative Pain, Requested by Surgeon Sedation Type: Sedate with meaningful contact maintained Preparation: Sterile Prep Position: Supine Needle Types: Pajunk Needle Gauge: 21 Ultrasound used to visualize needle placement: Yes Ultrasound used to observe medication spread: Yes Blood Aspirated: No Pain Paresthesia on Injection Noted: No Resistance on Injection: Normal Image Stored and Saved: Yes Events: Uneventful and Well Tolerated (Ropivacaine 0.5% with dexamethasone 4 mg)
== END | disposition home or self-care (01) ==
LOC: OR 10:37
PROVIDERS: ATTEND Orthopaedic Surgery
DX: M75.122 Complete rotator cuff tear or rupture of left shoulder, not specified as traumatic (principal); M75.42 Impingement syndrome of left shoulder; M19.012 Primary osteoarthritis, left shoulder; S43.432A Superior glenoid labrum lesion of left shoulder, initial encounter; M75.02 Adhesive capsulitis of left shoulder; M65.812 Other synovitis and tenosynovitis, left shoulder; S43.085D Other dislocation of left shoulder joint, subsequent encounter; S42.142D Displaced fracture of glenoid cavity of scapula, left shoulder, subsequent encounter for fracture with routine healing; I10 Essential (primary) hypertension; F32.9 Major depressive disorder, single episode, unspecified; M35.00 Sjogren syndrome, unspecified; E05.00 Thyrotoxicosis with diffuse goiter without thyrotoxic crisis or storm; Z79.890 Hormone replacement therapy; Z88.0 Allergy status to penicillin; Z88.2 Allergy status to sulfonamides; Z79.899 Other long term (current) drug therapy; Z98.890 Other specified postprocedural states; Z97.3 Presence of spectacles and contact lenses; Z82.49 Family history of ischemic heart disease and other diseases of the circulatory system; Z87.891 Personal history of nicotine dependence; W01.0XXD Fall on same level from slipping, tripping and stumbling without subsequent striking against object, subsequent encounter
CPT/HCPCS: 64415; 76942; 23412; C1713; C1894; J2250; J1100 ×2; J2405; J0690; J2001; J3010; J2795; J1885; J2370; J0330; J2704

== ENCOUNTER → 2021-07-31 | Outpatient (CLI) | payer MEDICARE ==
--- NOTE | 2021-07-31 14:00 | XR ---
EXAMINATION TYPE: XR lumbosacral spine min 4V DATE OF EXAM: 07/31/2021 CLINICAL HISTORY: pain COMPARISON: NONE TECHNIQUE: Frontal, lateral, and oblique images of the lumbar spine are obtained. FINDINGS: There are 5 lumbar type vertebral bodies identified. The lumbar spine shows satisfactory alignment without evidence of acute fracture or dislocation. Vertebral body heights are within normal limits. Moderate degenerative narrowing L5-S1. Facet joint arthropathy noted as well. The overlyin g soft tissue appears unremarkable. IMPRESSION: No acute fracture or dislocation is seen in the lumbar spine.ICD 10 NO FRACTURE, INITIAL EVALUATION
== END | disposition home or self-care (01) ==
LOC: RADXRMAIN 13:03
PROVIDERS: ATTEND Family Medicine
DX: M54.50 Low back pain, unspecified (principal)
CPT/HCPCS: 72110

== ENCOUNTER → 2023-01-20 | Outpatient (CLI) | payer MEDICARE ==
--- NOTE | 2023-01-20 14:59 | NM ---
EXAMINATION TYPE: NM bone scan whole body DATE OF EXAM: 01/20/2023 COMPARISON: NONE CLINICAL INDICATION: Female, 67 years old with history of M19.90 OSTEOARTHRITIS; Delayed whole-body scanning was performed following the injection of 23.8 mCi Tc 99m MDP. Images acq uired 3 hours post injection. FINDINGS: There is degenerative uptake seen about the shoulders, sternoclavicular joints, mid thoracic spine, l ower lumbar spine, bilateral hands and wrists, bilateral knees and bilateral ankles and mid feet. No intense uptake is seen to suggest fracture or bony lesion. IMPRESSION: Degenerative uptake noted.
== END | disposition home or self-care (01) ==
LOC: RADNMMAIN 09:57
PROVIDERS: ATTEND Family Medicine
DX: M19.012 Primary osteoarthritis, left shoulder (principal); M19.011 Primary osteoarthritis, right shoulder; M47.815 Spondylosis without myelopathy or radiculopathy, thoracolumbar region; M19.042 Primary osteoarthritis, left hand; M19.041 Primary osteoarthritis, right hand; M19.032 Primary osteoarthritis, left wrist; M19.031 Primary osteoarthritis, right wrist; M17.0 Bilateral primary osteoarthritis of knee; M19.072 Primary osteoarthritis, left ankle and foot; M19.071 Primary osteoarthritis, right ankle and foot; M19.09 Primary osteoarthritis, other specified site
CPT/HCPCS: 78306; A9503